=== PATIENT | male | born 1990 | race Caucasian/White ===

== ENCOUNTER 2023-12-26 07:34 | Emergency (ER) | payer OTHER ==
[2023-12-26 07:40] VITALS: RESP 18; BMI 31.3
[2023-12-26] MEDS ORDERED: KETOROLAC TROMETHAMINE 15 MG/ML VIAL ONE (08:53)
[2023-12-26] MEDS: KETOROLAC TROMETHAMINE 30 MG/1 ML VIAL IVPUSH ONE (09:13)
[2023-12-26] MEDS: SODIUM CHLORIDE 1,000 ML IV ONE (09:13)
[2023-12-26] MEDS ORDERED: ACETAMINOPHEN 500 MG TABLET (FP) ONE (09:52)
[2023-12-26 09:53] LABS: BASO % 0.6 % (0-2.0); EOS % 0.6 % (0-4.5); HEMOGLOBIN 15.3 GM/dL (11.7-16.9); LYMPH % 18.1 % (8-40); MCH 36.1 pg (25.7-33.7); MCHC 34.8 g/dl (32.0-35.9); MEAN CELL VOLUME 103.6 fl (80-96); MEAN PLT VOLUME 8.9 fl (7.5-11.1); MONO % 10.2 % (3.8-10.2); NEUT % 70.5 % (42.8-82.8); PLATELET COUNT 368 10^3/uL (134-434); RBC 4.25 M/mm3 (4.00-5.60); RDW 14.2 % (11.9-15.9)
[2023-12-26] MEDS: ACETAMINOPHEN 325 MG TABLET (FP) PO ONE (09:54)
[2023-12-26 10:21] LABS: POTASSIUM 4.7 mmol/L (3.5-5.1)
[2023-12-26 10:25] LABS: CALCIUM 8.7 mg/dL (8.5-10.1)
[2023-12-26 10:26] LABS: ALBUMIN 3.4 g/dl (3.4-5.0); BLOOD UREA NITROGEN 20.8 mg/dL (7-18)
[2023-12-26 10:29] LABS: CREATININE 1.2 mg/dL (0.55-1.3)
[2023-12-26 10:30] LABS: BILIRUBIN,TOTAL 0.4 mg/dL (0.2-1)
[2023-12-26 10:31] LABS: TOT PROT 6.6 g/dl (6.4-8.2)
[2023-12-26 11:28] VITALS: BP 112/55; PULSE 62; TEMP 97.7
[2023-12-26] MEDS ORDERED: LIDOCAINE 4% PATCH TP ONE (12:16)
[2023-12-26] MEDS ORDERED: CYCLOBENZAPRINE HCL 10 MG TABLET (FP) ONE (12:16)
[2023-12-26] MEDS: CYCLOBENZAPRINE HCL 10 MG TABLET (FP) PO ONE (12:21)
[2023-12-26] MEDS: LIDOCAINE 5% TOPICAL PATCH TP ONE (12:21)
[2023-12-26] MEDS ORDERED: LIDOCAINE PATCH REMOVAL MC ONE (22:00)
== END 2023-12-26 13:00 | disposition home or self-care (01) ==
LOC: JER 07:34
PROC: 3E033NZ Introduction of Analgesics, Hypnotics, Sedatives into Peripheral Vein, Percutaneous Approach (ICD-10-PCS; principal; 2023-12-26)
PROC: 3E0337Z Introduction of Electrolytic and Water Balance Substance into Peripheral Vein, Percutaneous Approach (ICD-10-PCS; 2023-12-26)
DX: S39.012A Strain of muscle, fascia and tendon of lower back, initial encounter (principal); R00.2 Palpitations; R74.01 Elevation of levels of liver transaminase levels; X50.9XXA Other and unspecified overexertion or strenuous movements or postures, initial encounter
CPT/HCPCS: 36415; 71046-TC-FY; 72100-TC-FY; 80053; 84443; 85025; 93005; 93010; 99285-25